=== PATIENT | female | born 1980 | race Caucasian/White ===

== ENCOUNTER 2017-11-27 11:50 | Emergency (ER) | payer OTHER ==
[~2017-11-27] VITALS: Ht 172.7 cm; Wt 95.3 kg
== END 2017-11-27 13:34 | disposition home or self-care (01) ==
LOC: ER 11:50
DX: H00.11 Chalazion right upper eyelid (principal)

== ENCOUNTER 2019-01-10 11:14 | Emergency (ER) | payer OTHER ==
[~2019-01-10] VITALS: Ht 172.7 cm; Wt 87.5 kg
== END 2019-01-10 14:32 | disposition home or self-care (01) ==
LOC: ER 11:14
DX: M72.2 Plantar fascial fibromatosis (principal)

== ENCOUNTER 2019-04-08 13:25 | Emergency (ER) | payer OTHER ==
[~2019-04-08] VITALS: Ht 172.7 cm; Wt 82.6 kg
== END 2019-04-08 15:36 | disposition home or self-care (01) ==
LOC: ER
DX: H57.11 Ocular pain, right eye (principal)